=== PATIENT | female | born 1980 | race Caucasian/White ===

== ENCOUNTER 2017-09-24 12:47 | Emergency (ER) | payer MEDICARE, MEDICAID ==
[2017-09-24 12:59] VITALS: BP 149/91
[2017-09-24 15:25] LABS: Bilirubin,Urine NEG (Negative); Blood,Urine LG (Negative); Color,Urine Yellow (Yellow); Mucus,Urine FEW /HPF; Protein,Urine <15 mg/dL mg/dL (Negative); Urobilinogen,Urine < 2.0 mg/dL (<2.0)
[2017-09-24 15:28] LABS: RBC,Urine < 1.0 /HPF (0.0-6.0)
--- NOTE | 2017-09-24 18:03 | Emergency Department Report ---
<MAIRA CRUZ - Last Filed: 09/24/17 18:21> ED Female HPI - General Chief complaint: Vaginal Bleeding Stated complaint: VAGINAL BLEEDING/ Time Seen by Provider: 09/24/17 17:17 Source: patient Mode of arrival: Ambulatory Limitations: No Limitations - History of Present Illness Initial comments: 37-year-old -[place] female comes in presenting with vaginal bleeding and abdominal cramping that started last night persistently getting worse. Patient states that she is several weeks confirmed by ultrasound last week. 7 para 5. One miscarriage. Past medical history of muscular sclerosis supraventricular tachycardia and previous miscarriage she's had 4 C- sections Complaint: vaginal bleeding -: Last night Severity: moderate Severity scale (0 -10): 4 - Related Data Previous Rx's Medication Instructions Recorded Last Taken Type Acetaminophen/Codeine [Tylenol #3] 1 tab PO Q6H PRN #15 tab 03/03/16 Unknown Rx Cyclobenzaprine HCl [Flexeril 5 MG 5 mg PO TID #15 tab 03/03/16 Unknown Rx TAB] Ferrous Sulfate [Feosol 325 MG tab] 325 mg PO BID #60 tablet 07/11/16 Unknown Rx Ibuprofen [Motrin 800 MG tab] 800 mg PO Q6H PRN #40 tablet 07/11/16 Unknown Rx oxyCODONE /ACETAMINOPHEN [Percocet 2 tab PO Q4H PRN #40 tablet 07/11/16 Unknown Rx 5/325 mg] Allergies Allergy/AdvReac Type Severity Reaction Status Date / Time ciprofloxacin [From Cipro] Allergy Angioedema Verified 03/02/16 22:42 ciprofloxacin HCl Allergy Angioedema Verified 03/02/16 22:42 [From Cipro] latex Allergy Itching Verified 03/03/16 01:03 ED Review of Systems ROS: Stated complaint: VAGINAL BLEEDING/ Other details as noted in HPI ED Past Medical Hx - Past Medical History Previous Medical History?: Yes Hx Hypertension: No Hx Congestive Heart Failure: No Hx Diabetes: No Hx Deep Vein Thrombosis: No Hx Renal Disease: No Hx Sickle Cell Disease: No Hx Seizures: No Hx Asthma: No Hx COPD: No Hx HIV: No Additional medical history: MS / SVT, previous miscarriage - Surgical History Past Surgical History?: Yes Additional Surgical History: C SECTION X 4 - Social History Smoking Status: Never Smoker - Medications Home Medications: Home Medications Medication Instructions Recorded Confirmed Last Taken Type Acetaminophen/Codeine [Tylenol #3] 1 tab PO Q6H PRN #15 tab 03/03/16 Unknown Rx Cyclobenzaprine HCl [Flexeril 5 MG 5 mg PO TID #15 tab 03/03/16 Unknown Rx TAB] Ferrous Sulfate [Feosol 325 MG tab] 325 mg PO BID #60 tablet 07/11/16 Unknown Rx Ibuprofen [Motrin 800 MG tab] 800 mg PO Q6H PRN #40 tablet 07/11/16 Unknown Rx oxyCODONE /ACETAMINOPHEN [Percocet 2 tab PO Q4H PRN #40 tablet 07/11/16 Unknown Rx 5/325 mg] ED Physical Exam - General Limitations: No Limitations ED Course Vital Signs 09/24/17 12:55 Temperature 98.6 F Pulse Rate 99 H Respiratory 18 Rate Blood Pressure 149/91 O2 Sat by Pulse 99 Oximetry Critical care attestation.: If time is entered above; I have spent that time in minutes in the direct care of this critically ill patient, excluding procedure time. ED Disposition Condition: Stable Referrals: PRIMARY CARE, [Primary Care Provider] - 3-5 Days Forms: AMA Form <JENN GOFF - Last Filed: 09/24/17 19:57> ED Medical Decision Making - Lab Data Result diagrams: 09/24/17 19:37 - Medical Decision Making Patient was signed out to me by Yokasta Cruz. I did not assess the patient but ordered further evaluation from Cinthya song. Patient left AMA without my knowledge prior to my interview or assessment.
--- NOTE | 2017-09-24 19:44 | Ultrasound Report ---
FINAL REPORT PROCEDURE: Transabdominal pelvic ultrasound. TECHNIQUE: Real-time transabdominal sonography in multiple planes of pelvis was performed with image documentation. This examination was performed without Doppler. Vascular abnormalities, including ovarian torsion, will not be detectable without Doppler evaluation. CPT 75544 HISTORY: 7 weeks with vaginal bleeding and cramping. COMPARISON: None that are applicable. FINDINGS: Image quality is limited because of the patient's body habitus and the lack of a distended bladder. The uterus measures 10.3 centimeters x 5.1 centimeters x 6.3 centimeters. The myometrium is grossly normal. The endometrial echo complex measures 8.1 millimeters. There is no definite intrauterine gestational sac. Neither ovary is identified. There is no visible fluid in the cul-de-sac. IMPRESSION: Limited study. Normal appearing uterus. No definite gestational sac.
[2017-09-24 19:48] LABS: Hematocrit 39.7 % (30.3-42.9); Hemoglobin 13.1 gm/dl (10.1-14.3); Mean Corpuscular HGB Conc 33 % (30-34); Mean Corpuscular Hemoglobin 30 pg (28-32); Mean Corpuscular Volume 92 fl (79-97); Platelet Count 400 K/mm3 (140-440); Red Blood Count 4.34 M/mm3 (3.65-5.03); Red Cell Distribution Width 14.7 % (13.2-15.2)
--- NOTE | 2017-09-24 19:49 | Ultrasound Report ---
FINAL REPORT PROCEDURE: Transvaginal pelvic ultrasound. TECHNIQUE: Real-time transvaginal sonography in multiple planes of the pelvis was performed with image documentation. This examination was performed without Doppler. Vascular abnormalities, including ovarian torsion, will not be detectable without Doppler evaluation. CPT 64547 HISTORY: 7 weeks with vaginal bleeding and cramping. COMPARISON: None that are applicable. FINDINGS: The uterus measures 10.3 centimeters x 5.1 centimeters x 6.3 centimeters. There may be a small uterine fibroid located posteriorly. There is a small amount of fluid within the endocervical canal. The endometrial echo complex is poorly defined. There is a small fluid collection in the uterus which could represent an early gestational sac. This measures 4.9 millimeters in diameter which would indicate a menstrual age of 5 weeks 2 days. There is no definite pole identified. Follow-up imaging and correlation with a quantitative beta HCG value is suggested. Neither ovary is identified. There is a tiny amount of free fluid in the cul-de-sac. IMPRESSION: Possible very early intrauterine gestational sac. Follow-up recommended. Nonvisualization of either ovary. Question small uterine fibroid.
[2017-09-24 20:10] LABS: BUN/Creatinine Ratio 16; Blood Urea Nitrogen 8 mg/dL (7-17); Hemolysis Index 37
[2017-09-24 20:21] LABS: Basophils % (Manual) 0 % (0.0-1.8); Total Cells Counted 100
[2017-09-24 20:22] LABS: Anisocytosis Few; Poikilocytosis Few
== END 2017-09-24 19:55 | disposition left against medical advice (07) ==
LOC: ED 12:47
DX: O46.91 Antepartum hemorrhage, unspecified, first trimester (principal); Z53.21 Procedure and treatment not carried out due to patient leaving prior to being seen by health care provider
CPT/HCPCS: 36415; 76801; 76817; 80048; 81001; 84702; 85007; 85025; 86850; 86900; 86901